=== PATIENT | male | born 1990 | race African-American/Black ===

== ENCOUNTER 2017-09-18 21:41 | Emergency (ER) | payer SELFPAY ==
[2017-09-18 21:42] VITALS: BP 142/84; PULSE 70; RESP 16; TEMP 98.7; O2SAT 98
--- NOTE | 2017-09-18 22:05 | PD ---
HPI Chief Complaint: Musculoskeletal Complaint Time Seen by Provider: 21:50 Travel History International Travel<30 days: No Contact w/Intl Traveler<30days: No Traveled to known affect area: No History of Present Illness HPI Patient is a 27-year-old male who presents to emergency room with complaints of right-sided shoulder pain. Patient reports that he was playing soccer tonight, reports that he fell and landed onto his right shoulder. Patient reports that he is [id number], reports pain with range of motion to his right shoulder. Patient with only complaints of pain to his right shoulder, no trauma to the head or neck. Patient reports that he is currently not taking any medications, he has no medical problems. PFSH Past Medical History Medical History: Denies Significant Hx Tetanus Vaccination: Unknown Influenza Vaccination: No Past Surgical History Surgical History: No Previous Surgery Social History Alcohol Use: No Tobacco Use: No Substance Use: No Allergies-Medications (Allergen,Severity, Reaction): Coded Allergies: No Known Allergies (Unverified , 09/18/17) Reported Meds & Prescriptions Reported Meds & Active Scripts Active No Active Prescriptions or Reported Medications Review of Systems General / Constitutional: No: Fever Eyes: No: Visual changes HENT: No: Headaches Cardiovascular: No: Chest Pain or Discomfort Respiratory: No: Shortness of Breath Gastrointestinal: No: Abdominal Pain Genitourinary: No: Dysuria Musculoskeletal: Positive: Limited ROM (right shoulder), Pain (right shoulder/ right clavicle) Skin: No Rash Neurologic: No: Weakness Psychiatric: No: Depression Endocrine: No: Polydipsia Hematologic/Lymphatic: No: Easy Bruising Physical Exam Narrative GENERAL: Mild distress SKIN: Focused skin assessment warm/dry. HEAD: Atraumatic. Normocephalic. EYES: Pupils equal and round. No scleral icterus. No injection or drainage. ENT: No nasal bleeding or discharge. Mucous membranes pink and moist. NECK: Trachea midline. No JVD. CARDIOVASCULAR: Regular rate and rhythm. No murmur appreciated. RESPIRATORY: No accessory muscle use. Clear to auscultation. Breath sounds equal bilaterally. GASTROINTESTINAL: Abdomen soft, non-tender, nondistended. Hepatic and splenic margins not palpable. MUSCULOSKELETAL: No clubbing. No cyanosis. No edema. Patient with pain with ROM to right shoulder, no open fracture, pulses intact, neurovascularly intact NEUROLOGICAL: Awake and alert. No obvious cranial nerve deficits. Motor grossly within normal limits. Normal speech. PSYCHIATRIC: Appropriate mood and affect; insight and judgment normal. Data Data Last Documented VS Vital Signs Date Time Temp Pulse Resp B/P (MAP) Pulse Ox O2 Delivery O2 Flow Rate FiO2 09/18/17 21:42 98.7 70 16 142/84 (103) 98 Room Air Orders Orders Shoulder, Complete (>2vws) (09/18/17 ) Clavicle (09/18/17 ) MDM Medical Decision Making Medical Screen Exam Complete: Yes Emergency Medical Condition: Yes Medical Record Reviewed: Yes Interpretation(s) Vital Signs Date Time Temp Pulse Resp B/P (MAP) Pulse Ox O2 Delivery O2 Flow Rate FiO2 09/18/17 21:42 98.7 70 16 142/84 (103) 98 Room Air Differential Diagnosis clavicle fx, humerus fx, ac dislocation Narrative Course During the course of the patients emergency department visit, the patients history, examination, and differential diagnosis were reviewed with the patient. The patient was placed on a manufacturing engineering director with oximetry and frequent blood pressure monitoring. T Radiology studies were reviewed and remarkable for: Last Impressions Shoulder X-Ray 09/18/17 0000 Signed Impressions: Service Date/Time: Monday, September 18, 2017 22:17 - CONCLUSION: 1. Glenohumeral joint is intact. 2. A.c. joint separation with superior displacement of the lateral clavicle. Warner Petersen MD Clavicle X-Ray 09/18/17 0000 Signed Impressions: Service Date/Time: Monday, September 18, 2017 22:19 - CONCLUSION: A.c. joint separation with mild superior displacement of the lateral clavicular head. Warner Petersen MD patient with AC dislocation. Patient will follow-up with orthopedic surgery as outpatient return to emergency room as needed. Diagnosis Primary Impression: AC joint dislocation Qualified Codes: S43.101A - Unspecified dislocation of right acromioclavicular joint, initial encounter Referrals: Stephen Rodriguez MD Patient Instructions: General Instructions Additional Instructions: Please provide patient with a copy of his studies at discharge Return to the ER if symptoms worsen or progress Return to the ER as needed Scripts No Active Prescriptions or Reported Meds Disposition: 01 DISCHARGE HOME Condition: Stable Mary Lou Hernandeznifer Rambo ZUNIGA Sep 18, 2017 22:05
--- NOTE | 2017-09-18 22:31 | RADRPT ---
EXAM DATE/TIME: 09/18/2017 22:19 [facility] COMPARISON: No previous studies available for comparison. INDICATIONS : Fracture. Fell on shoulder tonight playing soccer. MEDICAL HISTORY : None. SURGICAL HISTORY : None. ENCOUNTER: Initial ACUITY: 1 day PAIN SCORE: 7/10 LOCATION: Right Mid clavicle FINDINGS: There is dislocation of the lateral right clavicle at the a.c. joint with the lateral clavicle displa héctor approximately 1 cm superior. No fracture is seen. CONCLUSION: A.c. joint separation with mild superior displacement of the lateral clavicular head. Warner Petersen MD on September 18, 2017 at 22:29 Board Certified Radiologist. This report was verified electronically.
--- NOTE | 2017-09-18 22:33 | RADRPT ---
EXAM DATE/TIME: 09/18/2017 22:17 [facility] COMPARISON: No previous studies available for comparison. INDICATIONS : Fracture. Playing soccer. Fell on shoulder tonight. MEDICAL HISTORY : None. SURGICAL HISTORY : None. ENCOUNTER: Initial ACUITY: 1 day PAIN SCORE: 7/10 LOCATION: Right Top of shoulder FINDINGS: 4 view examination demonstrates an intact glenohumeral joint without evidence of dislocation. There is superior dislocation of the head of the clavicle with respect to the glenoid, approximately 1 cm. No fractures seen. Visualized right upper ribs are intact. CONCLUSION: 1. Glenohumeral joint is intact. 2. A.c. joint separation with superior displacement of the lateral clavicle. Warner Petersen MD on September 18, 2017 at 22:30 Board Certified Radiologist. This report was verified electronically.
== END 2017-09-18 23:51 | disposition home or self-care (01) ==
LOC: NEPE 21:41
DX: S43.101A Unspecified dislocation of right acromioclavicular joint, initial encounter (principal); W18.30XA Fall on same level, unspecified, initial encounter; Y93.66 Activity, soccer
CPT/HCPCS: 73000; 73030; 99283